=== PATIENT | male | born 1985 | race Asian ===

== ENCOUNTER 2022-10-29 23:13 | Emergency (ER) | payer BC ==
[2022-10-30] MEDS ORDERED: Take Home: Ketorolac 10 MG Tab, 4 Tab Pack PO ONE (00:38)
[2022-10-30 00:56] LABS: CORONAVIRUS COVID-19 NAA NEGATIVE (NEGATIVE); RESPIRATORY SYNCYTIAL VIR NAA NEGATIVE (NEGATIVE)
== END 2022-10-30 01:10 | disposition home or self-care (01) ==
LOC: LL.ED 23:13
DX: K52.9 Noninfective gastroenteritis and colitis, unspecified (principal); Z20.822 Contact with and (suspected) exposure to COVID-19
CPT/HCPCS: 0241U; 99283; 99284; A9270-GY